=== PATIENT | male | born 1950 | race Caucasian/White ===

== ENCOUNTER 2017-09-17 12:30 | Emergency (ER) | payer OTHER ==
--- NOTE | 2017-09-17 12:35 | PDOC ---
History of Present Illness - General Chief Complaint: Injury Stated Complaint: NOSE INJURY Time Seen by Provider: 09/17/17 12:34 - History of Present Illness Initial Comments: 09/17/17 12:49 67-year-old male with a history of hyperlipidemia, on daily aspirin 81 mg presents emergency Department with nose pain after accidentally hitting a glass door. Patient states he was walking in the hallway when he was distracted turned his head and hit his nose into the glass door. Denies any loss of consciousness. Denies nosebleed. States he sustained a scratch to his nose and now only complains of nose pain. Denies headache, nausea, vomiting, visual symptoms. Denies weakness, dizziness, numbness. Denies any other injuries. Has been in his usual state of good health, denies chest pain, shortness of breath. Doesn't remember last tdap. 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 Review of Systems - Review of Systems Comments:: 09/17/17 12:52 GENERAL/CONSTITUTIONAL: No fever or chills. No weakness. HEAD, EYES, EARS, NOSE AND THROAT: No change in vision. No ear pain or discharge. No sore throat. +nasal pain GASTROINTESTINAL: No nausea, vomiting, diarrhea or constipation. GENITOURINARY: No dysuria, frequency, or change in urination. CARDIOVASCULAR: No chest pain or shortness of breath. RESPIRATORY: No cough, wheezing, or hemoptysis. MUSCULOSKELETAL: No joint or muscle swelling or pain. No neck or back pain. SKIN: No rash NEUROLOGIC: No headache, vertigo, loss of consciousness, or change in strength/ sensation. ENDOCRINE: No increased thirst. No abnormal weight change. HEMATOLOGIC/LYMPHATIC: No anemia, easy bleeding, or history of blood clots. ALLERGIC/IMMUNOLOGIC: No hives or skin allergy. *Physical Exam - Physical Exam Comments: 09/17/17 12:53 GENERAL: Awake, alert, and fully oriented, in no acute distress HEAD: Nasal bridge with mild edema, ttp, +superficial well approximated 2mm abrasion EYES: PERRLA, EOMI, sclera anicteric, conjunctiva clear ENT: Auricles normal inspection, hearing grossly normal, nares patent w/o septal hematoma, oropharynx clear without exudates. Moist mucosa NECK: Normal ROM, supple, no lymphadenopathy, JVD, or masses LUNGS: Breath sounds equal, clear to auscultation bilaterally. No wheezes, and no crackles HEART: Regular rate and rhythm, normal S1 and S2, no murmurs, rubs or gallops ABDOMEN: Soft, nontender, normoactive bowel sounds. No guarding, no rebound. No masses EXTREMITIES: Normal range of motion, no edema. No clubbing or cyanosis. No cords, erythema, or tenderness NEUROLOGICAL: Normal speech, cranial nerves intact, negative pronator drift, 5/ 5 strength in all 4 extremities, normal sensation to light touch in all 4 extremities, normal cerebellar exam, normal gait, normal reflexes and tone SKIN: Warm, Dry, normal turgor, no rashes or lesions noted. Medical Decision Making - Medical Decision Making 09/17/17 12:57 67yo M on ASA 81mg daily presents to the ED with nose pain after trauma. Likely nasal fracture, will obtain CT facial bones. Will hold off on CTH as no direct head injury, no LOC, pt is intact with normal vitals. Pt reliable to return if sxs develop. 09/17/17 13:34 CT with acute vs chronic nasal spine injury in isolation. No other injuries noted. Pt feels well. TD updated. WIll DC to f/u with ENT in 1 week. I discussed the physical exam findings, ancillary test results and final diagnoses with the patient. I answered all of the patient's questions. The patient was satisfied with the care received and felt comfortable with the discharge plan and treatment plan. The patient will call their primary care physician within 24 hours to arrange follow-up and will return to the Emergency Department with any new, persistent or worsening symptoms. *DC/Admit/Observation/Transfer Diagnosis at time of Disposition: Nasal pain - Discharge Dispostion Disposition: HOME Condition at time of disposition: Stable Decision to Admit order: No - Referrals Referrals: Juan Thao MD [Staff Physician] - - Patient Instructions Printed Discharge Instructions: DI for Nose Fracture Additional Instructions: Call Dr. Thao's office for a follow up appointment with an [facility] doctor in 1 week. Take motrin or tylenol as needed for pain. Return to the emergency department if you have any new, worsening, or concerning symptoms. - Post Discharge Activity - Attestations Physician Attestion: 09/17/17 13:39 I, Dr. Karel Villalobos MD, attest that this document has been prepared under my direction and personally reviewed by me in its entirety. I further attest, that it accurately reflects all work, treatment, procedures and medical decision -making performed by me.
[2017-09-17 12:45] VITALS: BP 102/79; PULSE 78; TEMP 98.1; BMI 23.3
[2017-09-17] MEDS ORDERED: DIPHTH,PERTUSS(ACELL),TET 0.5 ML DISP.SYRIN IM ONE (14:06)
== END 2017-09-17 14:10 | disposition home or self-care (01) ==
LOC: FER 12:30
PROC: 3E0234Z Introduction of Serum, Toxoid and Vaccine into Muscle, Percutaneous Approach (ICD-10-PCS; principal; 2017-09-17)
DX: J34.89 Other specified disorders of nose and nasal sinuses (principal); W22.03XA Walked into furniture, initial encounter; Y93.89 Activity, other specified; Y92.9 Unspecified place or not applicable
CPT/HCPCS: 70486-TC; 90715; 99283-25